=== PATIENT | female | born 1950 | race Hispanic/Latino ===

== ENCOUNTER 2016-10-11 07:21 | Day surgery (SDC) | payer MEDICARE ==
[2016-10-01 08:27] VITALS: BMI 30.8
[~2016-10-11 07:21] MED LIST: Lactated Ringer's 500 ML IV ONE; Phenylephrine 2.5% Opht Soln OD SCH; Tropicamide 1% Opht SOLUTION OD SCH
[2016-10-11] MEDS ORDERED: Lactated Ringer's 500 ML IV ONE (08:05)
[2016-10-11 08:24] VITALS: RESP 18
[2016-10-11] MEDS ORDERED: Povidone Iodine Ophthalmic 5% Soln ONE (08:49)
[2016-10-11] MEDS ORDERED: Hyaluronidase Human, Recombi 150 U/ML VIAL ONE (08:50)
[2016-10-11] MEDS ORDERED: Tobramycin/Dexamethasone OPHT OINT ONE (08:50)
[2016-10-11] MEDS ORDERED: Lidocaine 2% Inj (20ml) ONE (08:50)
[2016-10-11] MEDS ORDERED: Tetracaine 0.5% Ophth (OR ONLY) ONE (08:50)
[2016-10-11] MEDS ORDERED: Chondroitin/Hyaluronate Opth Syringe KIT (0.55 ml-0.5 ml) IO ONE (08:50)
[2016-10-11] MEDS ORDERED: Carbachol 0.01% IO ONE (08:50)
[2016-10-11] MEDS ORDERED: Propofol 10 mg/ml Inj (20 ML) ONE (09:00)
[2016-10-11 10:41] VITALS: TEMP 98
[2016-10-11 10:43] VITALS: BP 135/74; PULSE 76; O2SAT 98
--- NOTE | 2016-10-11 10:49 | OP ---
PROCEDURE DATE: 10/11/2016 PREOPERATIVE DIAGNOSIS: Nuclear cataract, right eye. POSTOPERATIVE DIAGNOSIS: Nuclear cataract, right eye. OPERATIVE PROCEDURE: Cataract extraction with lens implant, right eye. SURGEON: Maann Barry MD. ANESTHESIA: Retrobulbar block. COMPLICATIONS: None. ESTIMATED BLOOD LOSS: Zero. PROCEDURE: The patient was brought to the operating room and properly identified. Anesthesia staff a dministered intravenous sedation and retrobulbar block was given to the surgical eye. The patient wa s then prepped and draped in the usual sterile fashion. Attention was turned to the surgical eye. A lid speculum was placed into interpalpebral fissure. Si tting temporally two paracentesis incisions were made. The anterior chamber was filled with viscoela stic and a triplanar clear corneal incision was made. Using a cystitome anterior capsular leaflet wa s created. Utrata forceps were used to create a continuous curvilinear capsulorrhexis. Balanced jeanette t solution on a cannula was used to hydrodissect and hydrodelineate the lens. The lens was then phac oemulsified with no complications. Automated irrigation and aspiration was used to remove the cortex . Viscoelastic was used to deepen the anterior chamber. The lens was placed in the capsular bag. A utomated irrigation and aspiration was used to remove the viscoelastic. The anterior chamber was lucas led with Miochol. The wounds were hydrated with balanced salt solution. There was noted to be no le ak at the end of the case and the lens was well positioned. The lid speculum was removed. The eye w as given antibiotics and steroids and covered with a patch and shield. The patient was returned to [facility] recovery room in stable condition. Manan Barry MD cc: [phone] TT: 10/11/2016 10:48:42 jn
== END 2016-10-11 10:15 | disposition home or self-care (01) ==
LOC: C.SDS 07:21
PROVIDERS: ATTEND Ophthalmology
DX: H25.11 Age-related nuclear cataract, right eye (principal)
CPT/HCPCS: 66984; 82948; J2704; J3470; J7120

== ENCOUNTER 2016-12-06 12:25 | Emergency (ER) | payer MEDICARE ==
[2016-12-06 12:26] VITALS: BMI 30.8
[2016-12-06 12:48] VITALS: BP 116/76; PULSE 107; RESP 22; TEMP 98.4; O2SAT 96
--- NOTE | 2016-12-06 13:55 | C.PDOC ---
History Of Present Illness 66 yo female w/PMHx come in for evaluation of lower back pain exacerbation for past few days. Pt admits, pain is similar to previous episodes and appears chronic with acute exacerbation currently. Pt sts, pain is localized over left lower back, localized and worse with movement. Pt admits, takes Flexeril, Motrin , Tylenol #3 without improvement in pain. Pt admits, 2 weeks ago had onset of diarrhea. Pt sts, " was seen by PMD and received anti-diarrheal and antibiotic with good resolution in diarrhea". Otherwise, pt denies recent known trauma or injury, fever, chills, CP, SOB, abd. pain, N/V, UTI sx, saddle anesthesia, urinary or fecal incontinence, denies new weakness, sensory or vascular deficits to B/L LEs. Ambulate to Ed for evaluation, not in any apparent distress. Time Seen by Provider: 12/06/16 12:50 Chief Complaint (Nursing): Back Pain History Per: Patient Onset/Duration Of Symptoms: Gradual Current Symptoms Are (Timing): Worse Quality Of Discomfort: Aching Severity: Moderate Previous Symptoms: Back Pain, Chronic Pain Associated Symptoms: None Exacerbating Factor(s): Movement, Sitting Recent travel outside of the [place]: No Past Medical History Reviewed: Historical Data, Nursing Documentation, Vital Signs Vital Signs: Last Vital Signs Temp 98.4 F 12/06/16 12:45 Pulse 107 H 12/06/16 12:45 Resp 22 12/06/16 12:45 BP 116/76 12/06/16 12:45 Pulse Ox 96 12/06/16 13:55 - Medical History PMH: Arthritis, COPD, Diabetes (niddm), Emphysema, Fractures (left foot), Gall Bladder Disease (gallstones), Hypercholesterolemia, Hypothyroidism, TIA Denies: Chronic Kidney Disease Surgical History: Cholecystectomy - [facility] Procedures LAPAROSCOPIC CHOLECYSTECTOMY (01/12/13) TETANUS TOXOID ADMINIST (06/05/14) Family History: States: No Known Family Hx - Social History Hx Tobacco Use: Yes Hx Alcohol Use: No Hx Substance Use: No - Immunization History Hx Tetanus Toxoid Vaccination: No Hx Influenza Vaccination: No Hx Pneumococcal Vaccination: No Review Of Systems Except As Marked, All Systems Reviewed And Found Negative. Constitutional: Negative for: Fever, Chills ENT: Negative for: Throat Pain Cardiovascular: Negative for: Chest Pain, Palpitations Respiratory: Negative for: Cough, Shortness of Breath Gastrointestinal: Negative for: Nausea, Vomiting, Abdominal Pain, Diarrhea Genitourinary: Negative for: Dysuria, Frequency, Incontinence Musculoskeletal: Positive for: Back Pain Skin: Negative for: Rash, Bruising Neurological: Negative for: Weakness, Numbness, Headache, Dizziness Physical Exam - Physical Exam Appears: Well, Non-toxic, No Acute Distress Skin: Normal Color, Warm, Dry, No Rash Eye(s): bilateral: PERRL Oral Mucosa: Moist Throat: No Erythema, No Drooling Neck: Supple Respiratory: No Stridor, No Wheezing Gastrointestinal/Abdominal: Soft, No Tenderness, No Distention, No Guarding Back: No CVA Tenderness, Paraspinal Tenderness (diffuse L>R lumbar paraspinal tenderness with mild muscle spasm.) Extremity: No Pedal Edema, No Calf Tenderness, No Deformity Neurological/Psych: Oriented x3, Normal Speech, Normal Motor, Normal Sensation, Normal Reflexes ED Course And Treatment O2 Sat by Pulse Oximetry: 96 Progress Note: On re-evaluation, pt is afebrile, hemodynamicaly stable. non- toxic. Ambulatoyr in ED with stable gait. Abd: benign. back: (-) CVA tenderness. neurological intact. Pt has clinical finding c/w Left lower back pain. Pt advised. ref. to F/u with PMD in 2-3 days for re-eval. return to ED if any worsening or new changes. Disposition Counseled Patient/Family Regarding: Diagnosis, Need For Followup, Rx Given - Disposition Referrals: Amol Simpson MD [Staff Provider] - [facility] [Provider Group] [facility] [Provider Group] Disposition: HOME/ ROUTINE Disposition Time: 13:40 Condition: STABLE Additional Instructions: LIght duty to lower back Take pain medication as prescribed Follow up with PMD and Pain management in 2-3 days for re-evaluation. Return to ED if any worsening or new changes. Prescriptions: Methocarbamol [Robaxin] 500 mg PO TID #14 tab oxyCODONE/Acetaminophen [Percocet 5/325 mg Tab] 1 tab PO BID PRN #7 tab PRN Reason: Pain Instructions: Chronic Back Pain (ED) - Clinical Impression Clinical Impression: Back pain
== END 2016-12-06 14:27 | disposition home or self-care (01) ==
LOC: C.ER 12:25
DX: M54.5 Low back pain (principal)
CPT/HCPCS: 96372; 99283; J1885

== ENCOUNTER 2017-02-17 13:53 | Inpatient (IN) | payer MEDICARE ==
[2017-02-17 14:04] VITALS: BMI 31.1
--- NOTE | 2017-02-17 14:31 | RAD ---
HISTORY: productive cough COMPARISON: Chest x-ray performed 09/10/16 TECHNIQUE: Chest PA and lateral FINDINGS: LUNGS: Mild patchy opacity at the right lung base favored to reflect atelectasis rather than pneumonia; correlate clinically. Please note that chest x-ray has limited sensitivity for the detection of pulmonary masses. PLEURA: No significant pleural effusion identified. No definite pneumothorax . CARDIOVASCULAR: Borderline cardiomegaly. OSSEOUS STRUCTURES: Mild degenerative changes. VISUALIZED UPPER ABDOMEN: Unremarkable. OTHER FINDINGS: None. IMPRESSION: Mild patchy opacity at the right lung base favored to reflect atelectasis rather than pneumonia; correlate clinically. Mild biapical pleural thickening.
[2017-02-17] MEDS ORDERED: Sodium Chloride 0.9% 1,000 ML IV ONE ×2 (14:33→16:02)
[2017-02-17] MEDS ORDERED: Azithromycin 500 MG in Sodium Chloride 0.9% 250 ML IVPB STA (14:34)
--- NOTE | 2017-02-17 14:39 | C.PDOC ---
History Of Present Illness 66 yr old female with PMHx of COPD and diabetes, presents to ER with 1 day history of nasal congestion, productive cough with green sputum and chest pain with cough. Denies isolated chest pain. Also reports of chills. Patient denies fever, leg swelling, palpitations, SOB, nausea, vomiting or abdominal pain. Time Seen by Provider: 02/17/17 14:07 Chief Complaint (Nursing): Cough, Cold, Congestion History Per: Patient History/Exam Limitations: no limitations Onset/Duration Of Symptoms: Days (1) Current Symptoms Are (Timing): Still Present Past Medical History Reviewed: Historical Data, Nursing Documentation, Vital Signs Vital Signs: Last Vital Signs Temp 98.7 F 02/17/17 15:56 Pulse 130 H 02/17/17 15:56 Resp 20 02/17/17 15:56 BP 134/80 02/17/17 15:56 Pulse Ox 95 02/17/17 15:56 - Medical History PMH: Arthritis, COPD, Diabetes (niddm), Emphysema, Fractures (left foot), Gall Bladder Disease (gallstones), Hypercholesterolemia, Hypothyroidism, TIA Surgical History: Cholecystectomy - [facility] Procedures LAPAROSCOPIC CHOLECYSTECTOMY (01/12/13) TETANUS TOXOID ADMINIST (06/05/14) Family History: States: No Known Family Hx - Social History Hx Tobacco Use: Yes Hx Alcohol Use: No Hx Substance Use: No - Immunization History Hx Tetanus Toxoid Vaccination: No Hx Influenza Vaccination: No Hx Pneumococcal Vaccination: No Review Of Systems Except As Marked, All Systems Reviewed And Found Negative. Constitutional: Positive for: Chills. Negative for: Fever Cardiovascular: Positive for: Chest Pain (With cough ). Negative for: Palpitations, Orthopnea, Edema, Light Headedness Respiratory: Positive for: Cough (Productive ), Sputum (Green ). Negative for: Shortness of Breath, Hemoptysis, SOB with Excertion, Pleuritic Pain, Wheezing Gastrointestinal: Negative for: Nausea, Vomiting, Abdominal Pain, Constipation Genitourinary: Negative for: Dysuria Musculoskeletal: Negative for: Neck Pain Skin: Negative for: Rash Neurological: Negative for: Weakness, Numbness Psych: Negative for: Anxiety Physical Exam - Physical Exam Appears: Well, Non-toxic, No Acute Distress Skin: Warm, Dry, No Rash Head: Atraumatic, Normacephalic Eye(s): bilateral: Normal Inspection, PERRL, EOMI Oral Mucosa: Moist Throat: Normal, No Erythema, No Exudate, No Drooling Neck: Normal, Normal ROM, Supple Chest: Symmetrical, No Tenderness Cardiovascular: Rhythm Regular, Other ((+) Tachy ) Respiratory: Normal Breath Sounds, No Rales, No Rhonchi, No Wheezing Gastrointestinal/Abdominal: Normal Exam, Soft, No Tenderness, No Distention, No Guarding, No Rebound Back: Normal Inspection, No CVA Tenderness Extremity: Normal ROM, No Swelling Neurological/Psych: Oriented x3, Normal Speech, Normal Motor Gait: Steady ED Course And Treatment - Laboratory Results Result Diagrams: 02/17/17 15:05 02/17/17 15:05 ECG: Viewed By Me ECG Rhythm: Sinus Tachycardia Interpretation Of ECG: Normal intervals. Normal axis. No ST/T wave changes. Rate From EC (BPM) O2 Sat by Pulse Oximetry: 95 (RA ) Pulse Ox Interpretation: Normal - Other Rad CXR X-Ray: Viewed By Me, Read By Radiologist Interpretation: HISTORY: productive cough. COMPARISON: Chest x-ray performed 09/10/16. TECHNIQUE: Chest PA and lateral. FINDINGS: LUNGS: Mild patchy opacity at the right lung base favored to reflect atelectasis rather than pneumonia; correlate clinically. Please note that chest x-ray has limited sensitivity for the detection of pulmonary masses. PLEURA: No significant pleural effusion identified. No definite pneumothorax . CARDIOVASCULAR: Borderline cardiomegaly. OSSEOUS STRUCTURES: Mild degenerative changes. VISUALIZED UPPER ABDOMEN: Unremarkable. OTHER FINDINGS: None. IMPRESSION: Mild patchy opacity at the right lung base favored to reflect atelectasis rather than pneumonia; correlate clinically. Mild biapical pleural thickening. Progress Note: CXR presentation consistent with pneumonia, patient will be started on antibiotics and blood cultures will be obtained. Medical Decision Making Medical Decision Making: PLAN: * CXR * EKG * VBG * D-Dimer * CBC * CMP * Tessalon Perles PO * Rocephin IVPB * Zithromax IVPB * Sodium Chloride IV WBC:15. Cxray consistent with pna. Tachycardic on arrival, but with normal lactate. D-dimer cancelled as presentation consistent with pneumonia. Will transfer to med/sx observation for pna. 3:46PM PMD Aron admits to [facility] and spoke to Dr. Tasia elias for [facility] who accepted patient to his service. Disposition - Disposition Disposition: HOSPITALIZED Disposition Time: 15:47 Condition: FAIR - Clinical Impression Clinical Impression: Pneumonia - Scribe Statement The provider has reviewed the documentation as recorded by the Nicolasaibe Marisabel Marrero Provider Attestation: All medical record entries made by the Nicolasaibnichole were at my direction and personally dictated by me. I have reviewed the chart and agree that the record accurately reflects my personal performance of the history, physical exam, medical decision making, and the department course for this patient. I have also personally directed, reviewed, and agree with the discharge instructions and disposition.
[2017-02-17] MEDS ORDERED: Azithromycin 500mg/250ML NS 500 MG/250 ML BAG IVPB ONE (14:46)
[2017-02-17] MEDS ORDERED: Sodium Chloride 0.9% 250 ML IV ONE (14:46)
[2017-02-17] MEDS ORDERED: cefTRIAXone IV 1 gm in Dextros 50 ML IVPB ONE (14:46)
[2017-02-17 15:17] LABS: BASO % 0.3 % (0.0-2.0); EOS # 0.1 K/uL (0.0-0.7); LYMPH # 1.1 K/uL (1.0-4.3); LYMPH % 6.9 % (20.0-40.0); MEAN CELL VOLUME 80.1 fL (81.0-99.0); MEAN CORPUSCULAR HEMOGLOBIN 25.6 pg (27.0-31.0); MEAN PLATELET VOLUME 7.4 fL (7.2-11.7); MONO # 0.6 K/uL (0.0-0.8); MONO % 3.7 % (0.0-10.0); PLATELET COUNT 322 K/uL (130-400); RED CELL DISTRIBUTION WIDTH 15.6 % (11.5-14.5); WHITE BLOOD COUNT 15.3 K/uL (4.8-10.8)
[2017-02-17 15:18] LABS: CHLORIDE 102 mmol/L (98-107); SODIUM 144 mmol/L (132-148)
[2017-02-17 15:19] LABS: POTASSIUM 3.8 mmol/L (3.6-5.2)
[2017-02-17 15:21] LABS: VENOUS BLOOD GAS BASE EXCESS 2.3 mmol/L (0.0-2.0); VENOUS BLOOD GAS PCO2 56 mmHg (40-60); VENOUS BLOOD PH 7.33 (7.32-7.43)
[2017-02-17 15:21] LABS: ALB/GLOB RATIO 1.3 (1.0-2.1); ALKALINE PHOSPHATASE 127 U/L (38-126); ALT/SGPT 46 U/L (9-52); AST/SGOT 29 U/L (14-36); BILIRUBIN,TOTAL 0.8 mg/dL (0.2-1.3); BLOOD UREA NITROGEN 10 mg/dL (7-17); CALCIUM 9.7 mg/dl (8.6-10.4); CARBON DIOXIDE 28 mmol/L (22-30); GFR AFRICAN-AMERICAN > 60; GLUCOSE,RANDOM 104 mg/dL (65-105); TOTAL PROTEIN 7.7 g/dL (6.3-8.3)
[2017-02-17 15:47] LABS: EOSINOPHIL 4 % (0-4); NEUTROPHIL 81 % (50-75); TOTAL CELLS COUNTED 100
[2017-02-17] MEDS ORDERED: Sodium Chloride 0.9% 1,000 ML ONE (16:42)
--- NOTE | 2017-02-17 20:36 | CP.PCM.HP ---
History of Present Illness - History of Present Illness History of Present Illness: 66 yr old female with PMHx of COPD and diabetes, presents to ER with 1 day history of nasal congestion, productive cough with green sputum and chest pain with cough. Denies isolated chest pain. Also reports of chills. Patient denies fever, leg swelling, palpitations, SOB, nausea, vomiting or abdominal pain. Present on Admission - Present on Admission Any Indicators Present on Admission: No History of DVT/PE: No History of Uncontrolled Diabetes: No Urinary Catheter: No Decubitus Ulcer Present: No Review of Systems - Review of Systems All systems: reviewed and no additional remarkable complaints except (As mentioned in HPI) Past Patient History - Infectious Disease Hx of Infectious Diseases: None - Past Medical History & Family History Past Medical History?: No - Past Social History Smoking Status: Former Smoker - CARDIAC Hx Hypercholesterolemia: Yes - PULMONARY Hx Chronic Obstructive Pulmonary Disease (COPD): Yes Hx Emphysema: Yes - NEUROLOGICAL Hx Transient Ischemic Attacks (TIA): Yes - HEENT Hx HEENT Problems: Yes Hx Cataracts: Yes - RENAL Hx Chronic Kidney Disease: No - ENDOCRINE/METABOLIC Hx Hypothyroidism: Yes - HEMATOLOGICAL/ONCOLOGICAL Hx Blood Transfusions: Yes - INTEGUMENTARY Hx Dermatological Problems: No - MUSCULOSKELETAL/RHEUMATOLOGICAL Hx Arthritis: Yes Hx Fractures: Yes (left foot) - GASTROINTESTINAL Hx Gall Bladder Disease: Yes (gallstones) - GENITOURINARY/GYNECOLOGICAL Hx Genitourinary Disorders: No - PSYCHIATRIC Hx Substance Use: No - SURGICAL HISTORY Hx Cholecystectomy: Yes - ANESTHESIA Hx Anesthesia: Yes Hx Anesthesia Reactions: No Hx Malignant Hyperthermia: No Meds Allergies/Adverse Reactions: Allergies Allergy/AdvReac Type Severity Reaction Status Date / Time No Known Allergies Allergy Verified 02/17/17 19:43 Physical Exam - Constitutional Additional comments: Dyspneic - Eye Exam Eye Exam: Normal appearance - ENT Exam ENT Exam: Mucous Membranes Moist - Respiratory Exam Respiratory Exam: Decreased Breath Sounds, Rhonchi - Cardiovascular Exam Cardiovascular Exam: REGULAR RHYTHM, +S1, +S2 - GI/Abdominal Exam GI & Abdominal Exam: Normal Bowel Sounds, Soft - Extremities Exam Extremities exam: Positive for: normal inspection - Neurological Exam Neurological exam: Alert, Oriented x3 Results - Vital Signs Recent Vital Signs: Last Vital Signs Temp 98.6 F 02/17/17 19:37 Pulse 84 02/17/17 19:37 Resp 18 02/17/17 19:37 BP 117/75 08/20/17 19:37 Pulse Ox 98 02/17/17 19:37 - Labs Result Diagrams: 02/17/17 15:05 02/17/17 15:05 Assessment & Plan (1) COPD (chronic obstructive pulmonary disease) Status: Acute (2) Diabetes Status: Acute (3) Pneumonia Status: Acute - Assessment and Plan (Free Text) Plan: Zithromax and ceftriaxone Sputum cultures Bronchodilators Oxygen supplementation Advair 250/50 micrograms 1 puff twice a day Accu-Chek Insulin sliding scale DVT GI prophylaxis
[2017-02-17] MEDS: (Novolog) Insulin Aspart, Recombinant 100 u/ml 10 ml vial SC SCH (22:01)
[2017-02-18] MEDS ORDERED: cefTRIAXone IV 1 gm in Dextros 50 ML IVPB SCH ×3 (00:15→22:00)
[2017-02-18] MEDS: Levothyroxine 150 MCG TAB PO SCH (05:56)
[2017-02-18] MEDS: Albuterol-Ipratrop 3 mg / 0.5 (3 ml) UD INH PRN ×3 (06:14→20:34)
[2017-02-18] MEDS: (Novolog) Insulin Aspart, Recombinant 100 u/ml 10 ml vial SC SCH ×5 (08:31→22:01)
[2017-02-18] MEDS: cefTRIAXone IV 1 gm in Dextros 50 ML IVPB SCH ×2 (10:09→22:01)
[2017-02-18] MEDS: Enoxaparin 40 mg Syringe SC SCH (10:11)
[2017-02-18] MEDS: Azithromycin 500 MG in Sodium Chloride 0.9% 250 ML IVPB SCH (12:42)
--- NOTE | 2017-02-18 13:41 | CP.PCM.PN ---
Subjective - Date & Time of Evaluation Date of Evaluation: 02/18/17 Time of Evaluation: 13:40 - Subjective Subjective: Patient seen and examined Still dyspneic Reports cough Objective - Vital Signs/Intake and Output Vital Signs (last 24 hours): Temp Pulse Resp BP Pulse Ox 99 F 122 H 20 124/74 93 L 02/18/17 09:33 02/18/17 09:33 02/18/17 09:33 02/18/17 09:33 02/18/17 09:33 Intake and Output: 02/18/17 02/18/17 06:59 18:59 Intake Total 250 240 Balance 250 240 - Medications Medications: Current Medications Albuterol/Ipratropium (Duoneb 3 Mg/0.5 Mg (3 Ml) Ud) 3 ml INH RQ6 PRN PRN Reason: Shortness of Breath Last Admin: 02/18/17 13:37 Dose: 3 ml Clopidogrel Bisulfate (Plavix) 75 mg PO DAILY [facility] Last Admin: 02/18/17 10:09 Dose: 75 mg Enoxaparin Sodium (Lovenox) 40 mg SC DAILY [facility] Last Admin: 02/18/17 10:11 Dose: Not Given Azithromycin 500 mg/ Sodium (Chloride) 250 mls @ 167 mls/hr IVPB Q24H [facility] Last Admin: 02/18/17 12:42 Dose: 167 mls/hr Ceftriaxone Sodium (Rocephin Iv 1 Gm Duplex) 50 mls @ 100 mls/hr IVPB Q12H [facility] Last Admin: 02/18/17 10:09 Dose: 100 mls/hr Insulin Aspart (Novolog) 0 unit SC ACHS ARMANI PRN Reason: Protocol Last Admin: 02/18/17 11:25 Dose: Not Given Levothyroxine Sodium (Synthroid) 150 mcg PO DAILY@0630 [facility] Last Admin: 02/18/17 05:56 Dose: 150 mcg Metformin HCl (Glucophage) 500 mg PO BIDCC [facility] Last Admin: 02/18/17 08:31 Dose: 500 mg Promethazine HCl (Phenergan Syrup) 12.5 mg PO Q6 PRN PRN Reason: Cough Rosuvastatin Calcium (Crestor) 5 mg PO HS [facility] Last Admin: 02/17/17 22:01 Dose: 5 mg Zolpidem Tartrate (Ambien) 5 mg PO HS PRN PRN Reason: Insomnia - Head Exam Head Exam: NORMAL INSPECTION - Eye Exam Eye Exam: Normal appearance - ENT Exam ENT Exam: Mucous Membranes Moist - Respiratory Exam Respiratory Exam: Rales, Rhonchi - Cardiovascular Exam Cardiovascular Exam: REGULAR RHYTHM, +S1, +S2 - GI/Abdominal Exam GI & Abdominal Exam: Soft, Normal Bowel Sounds - Extremities Exam Extremities Exam: Normal Inspection Assessment and Plan (1) Pneumonia Status: Acute (2) Diabetes Status: Acute (3) COPD (chronic obstructive pulmonary disease) Status: Acute - Assessment and Plan (Free Text) Plan: Zithromax and ceftriaxone Bronchodilators Oxygen supplementation Advair 250/50 micrograms 1 puff twice a day Accu-Chek Insulin sliding scale DVT GI prophylaxis
[2017-02-18] MEDS: Promethazine 12.5 mg/10 ml Syrup PO PRN ×2 (14:57→21:51)
[2017-02-19] MEDS: Levothyroxine 150 MCG TAB PO SCH (06:33)
[2017-02-19 07:48] VITALS: RESP 20
[2017-02-19] MEDS: (Novolog) Insulin Aspart, Recombinant 100 u/ml 10 ml vial SC SCH ×4 (08:16→22:35)
[2017-02-19] MEDS: Promethazine 12.5 mg/10 ml Syrup PO PRN ×2 (08:16→23:58)
[2017-02-19] MEDS: Albuterol-Ipratrop 3 mg / 0.5 (3 ml) UD INH PRN ×3 (08:18→20:59)
[2017-02-19] MEDS: cefTRIAXone IV 1 gm in Dextros 50 ML IVPB SCH ×2 (09:57→22:12)
[2017-02-19] MEDS: Enoxaparin 40 mg Syringe SC SCH (09:58)
[2017-02-19] MEDS: Azithromycin 500 MG in Sodium Chloride 0.9% 250 ML IVPB SCH (12:14)
[2017-02-19] MEDS ORDERED: guaiFENesin 200 mg/10 ml Syrup UD PO PRN (15:31)
--- NOTE | 2017-02-19 16:20 | CP.PCM.PN ---
Subjective - Date & Time of Evaluation Date of Evaluation: 02/19/17 Time of Evaluation: 16:20 - Subjective Subjective: Patient seen and examined Feels much better today Objective - Vital Signs/Intake and Output Vital Signs (last 24 hours): Temp Pulse Resp BP Pulse Ox 98.8 F 102 H 20 128/77 93 L 02/19/17 15:58 02/19/17 15:58 02/19/17 15:58 02/19/17 15:58 02/19/17 15:58 Intake and Output: 02/19/17 02/19/17 06:59 18:59 Intake Total 950 Balance 950 - Medications Medications: Current Medications Acetaminophen (Tylenol 325mg Tab) 650 mg PO Q6 PRN PRN Reason: Pain, severe (8-10) Last Admin: 02/19/17 12:48 Dose: 650 mg Albuterol/Ipratropium (Duoneb 3 Mg/0.5 Mg (3 Ml) Ud) 3 ml INH RQ6 PRN PRN Reason: Shortness of Breath Last Admin: 02/19/17 14:11 Dose: 3 ml Clopidogrel Bisulfate (Plavix) 75 mg PO DAILY [facility] Last Admin: 02/19/17 09:56 Dose: 75 mg Enoxaparin Sodium (Lovenox) 40 mg SC DAILY [facility] Last Admin: 02/19/17 09:58 Dose: Not Given Guaifenesin (Robitussin) 200 mg PO Q6H PRN PRN Reason: Cough and congestion Azithromycin 500 mg/ Sodium (Chloride) 250 mls @ 167 mls/hr IVPB Q24H [facility] Last Admin: 02/19/17 12:14 Dose: 167 mls/hr Ceftriaxone Sodium (Rocephin Iv 1 Gm Duplex) 50 mls @ 100 mls/hr IVPB Q12H [facility] Last Admin: 02/19/17 09:57 Dose: 100 mls/hr Insulin Aspart (Novolog) 0 unit SC ACHS ARMANI PRN Reason: Protocol Last Admin: 02/19/17 11:54 Dose: Not Given Levothyroxine Sodium (Synthroid) 150 mcg PO DAILY@0630 [facility] Last Admin: 02/19/17 06:33 Dose: 150 mcg Metformin HCl (Glucophage) 500 mg PO BIDCC [facility] Last Admin: 02/19/17 08:15 Dose: 500 mg Metoprolol Tartrate (Lopressor) 25 mg PO BID [facility] Promethazine HCl (Phenergan Syrup) 12.5 mg PO Q6 PRN PRN Reason: Cough Last Admin: 02/19/17 08:16 Dose: 12.5 mg Rosuvastatin Calcium (Crestor) 5 mg PO HS [facility] Last Admin: 02/18/17 21:50 Dose: 5 mg Zolpidem Tartrate (Ambien) 5 mg PO HS PRN PRN Reason: Insomnia - Head Exam Head Exam: NORMAL INSPECTION - Eye Exam Eye Exam: Normal appearance - ENT Exam ENT Exam: Mucous Membranes Moist - Cardiovascular Exam Cardiovascular Exam: REGULAR RHYTHM, +S1, +S2 - GI/Abdominal Exam GI & Abdominal Exam: Soft, Normal Bowel Sounds - Extremities Exam Extremities Exam: Normal Inspection - Neurological Exam Neurological Exam: Alert, Oriented x3 Assessment and Plan (1) COPD (chronic obstructive pulmonary disease) Status: Acute (2) Diabetes Status: Acute (3) Pneumonia Status: Acute - Assessment and Plan (Free Text) Plan: Zithromax and ceftriaxone Sputum cultures Bronchodilators Oxygen supplementation Advair 250/50 micrograms 1 puff twice a day Accu-Chek Insulin sliding scale If continues to improve clinically will discharge patient home tomorrow on oral antibiotics. DVT GI prophylaxis
--- NOTE | 2017-02-19 19:04 | CARD ---
APPROVED REPORT EKG Measurement Heart [id number] <Conclusion> Sinus tachycardia Otherwise normal ECG
[2017-02-20] MEDS: Levothyroxine 150 MCG TAB PO SCH (06:40)
[2017-02-20 08:02] VITALS: BP 144/93; PULSE 102; TEMP 97.2; O2SAT 95
[2017-02-20] MEDS: Albuterol-Ipratrop 3 mg / 0.5 (3 ml) UD INH PRN ×2 (08:09→13:20)
[2017-02-20] MEDS: (Novolog) Insulin Aspart, Recombinant 100 u/ml 10 ml vial SC SCH ×2 (08:28→11:55)
[2017-02-20] MEDS: cefTRIAXone IV 1 gm in Dextros 50 ML IVPB SCH ×2 (09:49→10:07)
[2017-02-20] MEDS: Enoxaparin 40 mg Syringe SC SCH (10:05)
[2017-02-20] MEDS: Azithromycin 500 MG in Sodium Chloride 0.9% 250 ML IVPB SCH (12:56)
--- NOTE | 2017-02-21 00:43 | CP.PCM.DIS ---
Provider - Provider Date of Admission: 02/18/17 15:17 Attending physician: Emeterio Dozier MD Time Spent in preparation of Discharge (in minutes): 25 Diagnosis - Discharge Diagnosis (1) COPD (chronic obstructive pulmonary disease) Status: Acute (2) Diabetes Status: Acute (3) Pneumonia Status: Acute Hospital Course - Lab Results Lab Results: Most Recent Lab Values WBC 15.3 K/uL (4.8-10.8) H D 02/17/17 15:05 RBC 5.37 Mil/uL (3.80-5.20) H 02/17/17 15:05 Hgb 13.8 g/dL (11.0-16.0) 02/17/17 15:05 Hct 43.0 % (34.0-47.0) 02/17/17 15:05 MCV 80.1 fL (81.0-99.0) L 02/17/17 15:05 MCH 25.6 pg (27.0-31.0) L 02/17/17 15:05 MCHC 32.0 g/dL (33.0-37.0) L 02/17/17 15:05 RDW 15.6 % (11.5-14.5) H 02/17/17 15:05 Plt Count 322 K/uL (130-400) 02/17/17 15:05 MPV 7.4 fL (7.2-11.7) 02/17/17 15:05 Neut % (Auto) 88.1 % (50.0-75.0) H 02/17/17 15:05 Lymph % (Auto) 6.9 % (20.0-40.0) L 02/17/17 15:05 [place] % (Auto) 3.7 % (0.0-10.0) 02/17/17 15:05 Eos % (Auto) 1.0 % (0.0-4.0) 02/17/17 15:05 Baso % (Auto) 0.3 % (0.0-2.0) 02/17/17 15:05 Neut # 13.5 K/uL (1.8-7.0) H 02/17/17 15:05 Lymph # 1.1 K/uL (1.0-4.3) 02/17/17 15:05 [place] # 0.6 K/uL (0.0-0.8) 02/17/17 15:05 Eos # 0.1 K/uL (0.0-0.7) 02/17/17 15:05 Baso # 0.0 K/uL (0.0-0.2) 02/17/17 15:05 Neutrophils % (Manual) 81 % (50-75) H 02/17/17 15:05 Lymphocytes % (Manual) 9 % (20-40) L 02/17/17 15:05 Monocytes % (Manual) 6 % (0-10) 02/17/17 15:05 Eosinophils % (Manual) 4 % (0-4) 02/17/17 15:05 Platelet Estimate Normal (NORMAL) 02/17/17 15:05 Anisocytosis (manual) Slight 02/17/17 15:05 D-Dimer, Quantitative 301 ng/mlDDU (0-243) H 02/17/17 15:05 pO2 18 mm/Hg (30-55) L 02/17/17 15:15 VBG pH 7.33 (7.32-7.43) 02/17/17 15:15 VBG pCO2 56 mmHg (40-60) 02/17/17 15:15 VBG HCO3 24.7 mmol/L 02/17/17 15:15 VBG Total CO2 31.2 mmol/L (22-28) H 02/17/17 15:15 VBG O2 Sat (Calc) 24.0 % (40-65) L 02/17/17 15:15 VBG Base Excess 2.3 mmol/L (0.0-2.0) H 02/17/17 15:15 VBG Potassium 3.7 mmol/L (3.6-5.2) 02/17/17 15:15 Sodium 144.0 mmol/l (132-148) 02/17/17 15:15 Chloride 105.0 mmol/L (98-107) 02/17/17 15:15 Glucose 108 mg/dl (65-105) H 02/17/17 15:15 Lactate 1.2 mmol/L (0.7-2.1) 02/17/17 15:15 FiO2 21.0 % 02/17/17 15:15 Sodium 144 mmol/L (132-148) 02/17/17 15:05 Potassium 3.8 mmol/L (3.6-5.2) 02/17/17 15:05 Chloride 102 mmol/L (98-107) 02/17/17 15:05 Carbon Dioxide 28 mmol/L (22-30) 02/17/17 15:05 Anion Gap 17 (10-20) 02/17/17 15:05 BUN 10 mg/dL (7-17) 02/17/17 15:05 Creatinine 0.7 MG/DL (0.7-1.2) 02/17/17 15:05 Est GFR ( Amer) > 60 02/17/17 15:05 Est GFR (Non-Af Amer) > 60 02/17/17 15:05 POC Glucose (mg/dL) 92 mg/dL (65-110) 02/20/17 11:03 Random Glucose 104 mg/dL (65-105) 02/17/17 15:05 Calcium 9.7 mg/dl (8.6-10.4) 02/17/17 15:05 Total Bilirubin 0.8 mg/dL (0.2-1.3) 02/17/17 15:05 AST 29 U/L (14-36) 02/17/17 15:05 ALT 46 U/L (9-52) 02/17/17 15:05 Alkaline Phosphatase 127 U/L (38-126) H D 02/17/17 15:05 Total Protein 7.7 g/dL (6.3-8.3) 02/17/17 15:05 Albumin 4.4 g/dL (3.5-5.0) 02/17/17 15:05 Globulin 3.3 gm/dL (2.2-3.9) 02/17/17 15:05 Albumin/Globulin Ratio 1.3 (1.0-2.1) 02/17/17 15:05 Venous Blood Potassium 3.7 mmol/L (3.6-5.2) 02/17/17 15:15 - Hospital Course Hospital Course: Patient was treated with IV and biotics, bronchodilators, oxygen Advair and her condition improved. Patient is being discharged home by me for pulmonary and by her PMD. Discharge Exam - Head Exam Head Exam: NORMAL INSPECTION Discharge Plan - Discharge Medications Prescriptions: Cephalexin [cephalexin] 500 mg PO BID #10 cap - Follow Up Plan Condition: FAIR Disposition: HOME/ ROUTINE Instructions: Heart Healthy Diet (DC), Diabetes Mellitus Type 2 in Adults (DC) , Rheumatoid Arthritis (DC), COPD (Chronic Obstructive Pulmonary Disease) (DC), Low Sodium Diet (DC), Atelectasis (DC) Additional Instructions: Please f/u with Dr. Simpson office in 1 week Continue medication as per Med. Rec Referrals: Amol Simpson MD [Staff Provider] -
== END 2017-02-20 14:19 | disposition home or self-care (01) | DRG 190 ==
LOC: C.ER 13:53 → C.9E 15:44 → C.3T 19:25 → OBSVTOIN 02-18 15:17
PROVIDERS: ADMIT Internal Medicine Critical Care Medicine; ATTEND Internal Medicine Critical Care Medicine
DX: J44.0 Chronic obstructive pulmonary disease with (acute) lower respiratory infection (principal); J18.9 Pneumonia, unspecified organism; E11.9 Type 2 diabetes mellitus without complications; Z79.4 Long term (current) use of insulin

== ENCOUNTER 2018-03-14 07:39 | Day surgery (SDC) | payer MEDICARE ==
[2017-02-17 15:51] VITALS: BMI 31.1
[~2018-03-14 07:39] MED LIST changes: +EPINEPHrine 1:1000 Nasal Sol(30mL) ONE; -Lactated Ringer's 500 ML IV ONE; -Phenylephrine 2.5% Opht Soln OD SCH; -Tropicamide 1% Opht SOLUTION OD SCH
[2018-03-14] MEDS ORDERED: ceFAZolin 1 gm FROZEN Premix 2 GM/100 ML ML IVPB ONE (07:40)
[2018-03-14] MEDS ORDERED: Rocuronium 10 mg/ml (10 ml) ONE (09:12)
[2018-03-14] MEDS ORDERED: Propofol 10 mg/ml Inj (20 ML) ONE (09:12)
[2018-03-14] MEDS ORDERED: Midazolam 2 MG/2 ML VIAL ONE (09:12)
[2018-03-14] MEDS ORDERED: Phenylephrine 10 mg/ml Inj ONE (09:25)
[2018-03-14] MEDS ORDERED: Neostigmine Methylsulfate 3mg/3ml Syringe IV ONE (10:55)
[2018-03-14] MEDS ORDERED: Oxycodone/Acetaminophen 5/325 mg Tab PO PRN (11:17)
[2018-03-14] MEDS ORDERED: HYDROmorphone 0.5 mg/0.5 ml ISec IVP PRN ×2 (11:20→13:09)
[2018-03-14] MEDS ORDERED: Lactated Ringer's 1,000 ML IV SCH (11:30)
[2018-03-14] MEDS ORDERED: Bupivacaine 0.25% 20 ML INJ IJ ONE (11:36)
[2018-03-14 12:59] VITALS: O2SAT 100
[2018-03-14 13:43] VITALS: BP 130/76; PULSE 77; RESP 18; TEMP 97
--- NOTE | 2018-03-14 20:50 | PCM.ANESB3 ---
Femoral Nerve Block - Femoral Nerve Block Date of Procedure: 03/14/18 Anesthesiologist: Wade Pre-Procedure Diagnosis: s/p left knee arthroscopy Procedure Performed: Femoral Nerve Block Left - Procedure Femoral Nerve Block: [id number] - Left femoral nerve block, adductor canal approach, requested by Dr. Partida. In PACU, under ultrasound guidance, 30 cc 0.25% bupivacaine injected under sterile conditions, 5 cc increments, negative aspiration throughout. Patient tolerated procedure well.
--- NOTE | 2018-03-16 23:55 | PCM.SURG1 ---
Surgeon's Initial Post Op Note - Surgeon's Notes Surgeon: Laureano Partida MD Workers Compensation Attorney: Jose E Goncalves MD Type of Anesthesia: General Endo, [facility] Pre-Operative Diagnosis: Right knee: #1 Medial meniscal tear. #2 chondromalacia. #3 synovitis. #4 [place] Operative Findings: Right knee: #1 Medial meniscal tear (posterior horn free- edge white-white zone tear extending to the anterior horn/ posterior horn peripheral tear at red-red zone, repairable). #2 lateral meniscal tear (white- white zone irrepairable free edge tear). #3 chondromalacia medial femoral condyle with zone of full thickness grade 4 injury at posterior aspect of WB MFC measuring [id number]). #4 synovitis all 3 compartments. #5 symptomatic medial plica band. #6 hypertrophic inflammed anterior fat pad causing anterior impingement Post-Operative Diagnosis: Right knee: #1 Medial meniscal tear (posterior horn free-edge white-white zone tear extending to the anterior horn/ posterior horn peripheral tear at red-red zone, repairable). #2 lateral meniscal tear (white- white zone irrepairable free edge tear). #3 chondromalacia medial femoral condyle with zone of full thickness grade 4 injury at posterior aspect of WB MFC measuring [id number]). #4 synovitis all 3 compartments. #5 symptomatic medial plica band. #6 hypertrophic inflammed anterior fat pad causing anterior impingement Operation Performed: Right knee arthroscopic. #1 medial meniscal repair. #2 partial lateral menisectomy. #3 microfracture and chondroplasty medial femoral condyle. #4 extensive synovectomy all 3 copartments. #5 resection symptomatic medial plica band. #6 debridement and resection hypertrophic fat pad. #7 intra -articular PRP injection Specimen/Specimens Removed: specimen= none. complications= none. tourniquet time= 0min. implants= Linvate[employer] all inside meniscal repair system, 8 implants in total for medial meniscal repair, 2 kits opened Estimated Blood Loss: EBL {In ML}: 3 Blood Products Given: N/A Drains Used: No Drains Post-Op Condition: Good Date of Surgery/Procedure: 03/14/18 Time of Surgery/Procedure: 10:00
--- NOTE | 2018-04-24 18:08 | OP ---
PROCEDURE DATE: 03/14/2018 PREOPERATIVE DIAGNOSES: Right knee: 1. Medial meniscal tear. 2. Chondromalacia. 3. Synovitis. 4. Plica. POSTOPERATIVE DIAGNOSES: Right knee: 1. Medical meniscal tear (posterior horn free edge white-white zone tear extending to the anterior horn, irreparable/posterior horn peripheral tear at red-red zone/meniscal capsular separation, that was repairable). 2. Lateral meniscal tear (white-white zone irreparable free edge tear). 3. Chondromalacia of medial femoral condyle with a zone of full thickness grade 4 injury at posterior aspect of weightbearing portion of medial femoral condyle measuring 3 mm x 4 mm). 4. Synovitis in all three compartments. 5. Symptomatic medical plica band. 6. Hypertrophic/inflamed anterior fat pad causing anterior impingement. PROCEDURES: Right knee arthroscopic: 1. All inside medial meniscal repair. 2. Partial lateral meniscectomy. 3. Chondroplasty and microfracture of medial femoral condyle full thickness cartilage defect. 4. Extensive synovectomy of three compartments. 5. Resection of symptomatic medial plica band. 6. Debridement and resection of hypertrophic fat pad. 7. Intraarticular platelet-rich plasma injection. SURGEON: Laureano Partida MD [employer] REPRESENTATIVE: Jose E Goncalves PA-C JUSTIFICATION FOR ASSISTANCE: Jose E Goncalves is a certified physician assistant district attorney, who is a skilled quality control assistant, whose presence was an absolute necessity for successful completion of the procedure as he provided skilled surgical assistance with positioning of the patient, positioning of the extremity, management of surgical bowman, retraction of neurovascular structures, facilitating all inside medial meniscal repair, facilitating partial lateral meniscectomy and handling of arthroscopic equipment including extensive synovectomy, facilitating placement of microfracture holes and successful microfracture procedure to medial femoral condyle, PRP injection, wound closure, fitting and placement of postop hinged knee brace. Jose E Goncalves was essential to the procedure, was an absolute necessity for the surgery to be done successfully and was present for the entire case. TYPE OF ANESTHESIA: General endotracheal anesthesia with a postop regional nerve block placed by anesthesia staff in PACU. SPECIMEN: None. COMPLICATIONS: None. TOURNIQUET TIME: Zero minutes. ESTIMATED BLOOD LOSS: 3 mL. DRAINS: None. DISPOSITION: The patient was extubated and transferred to the PACU in stable condition and tolerated the procedure well. IMPLANTS: Linvatec all inside Sequent meniscal repair system with placement of eight implants in total for all inside medial meniscal repair. INDICATIONS FOR SURGERY: The patient is a 67-year-old female with a past medical history significant for diabetes, hypothyroidism, who presented to my office for the first time on 09/09/2017 with the right knee pain for the better part of six years. She said that the pain was progressively worsening and she was delaying trying to obtain any orthopedic or medical intervention. She has had difficulty with going up and downstairs and significant medial joint line pain. X-rays taken in the office surprisingly showed that there was no evidence of DJD with the joint space is well maintained. We started the conservative treatment in the form of bracing, physical therapy, cortisone mixture injections, antiinflammatory medication in the form of Mobic and antiinflammatory cream. She was referred for an MRI of the right knee, which was done at [facility] [place] on 09/26/2017 and read as: 1. Linear increased signal within the posterior horn and posterior root of the medial meniscus with apparent extension to the articular surface of the level of the posterior edge suggestive for possible small tear. Additional intrasubstance degeneration and/or intrasubstance partial tearing throughout the remainder of the posterior horn. 2. Moderate suprapatellar joint effusion. 3. Linear grade 1 intrasubstance degeneration on the posterior horn of lateral meniscus. 4. Focal cartilage fibrillation overlying medial aspect of the lateral patellar facet. Mild cartilage thinning and loss involving the anterior to mid portion of the medial compartment of the femoral tibial joint space. 5. Mild thinning and attenuation with increased signal seen within the visualized anterior cruciate ligament suggestive for low grade sprain with some interstitial delamination. No gross tear. Under my care, she underwent conservative treatment for six months as she was compliant with physical therapy recommendations, home exercise program, Neoprene hinged knee brace, antiinflammatory medication and cream with no overall significant improvement. Each one of the cortisone mixture injections done in the office totalling four in total we provided with near-complete resolution of pain that was only last two weeks and returned to baseline level of pain within four weeks. After reviewing her MRI with her and determining her level of disability and dysfunction due to this pain and to improve her quality of life, the patient was indicated for arthroscopic surgery of the right knee. She was indicated for right knee arthroscopic meniscus repair versus partial meniscectomy, synovectomy, chondroplasty versus microfracture and all related indicated arthroscopic procedures. The risks, benefits and alternative of the procedure was discussed at length with the patient with the risks including, but not limited to infection, neurovascular damage, need for further surgery, development of chronic pain and disability, development of blood clots including DVT and PE, progression to significant degenerative joint disease requiring supplemental total knee arthroplasty surgery in the future, inability to return to preinjury level of activity and function, stiffness, unsatisfactory outcome, anesthesia reactions including . After answering all of the questions, stated that she understood the risks and wished to proceed with surgery. She was referred to the primary care physician for preoperative medical evaluation and PATs. Surgery was scheduled at [facility] on 03/14/2018. PROCEDURE IN DETAIL: The patient was identified in the preoperative holding area and the right knee was marked for surgery. Once again as described above, the risks, benefits, and alternatives to the procedure were discussed in length with the patient and informed consent was obtained. After brief discussion with anesthesia staff, the patient was taken to the operating room and placed on a well-padded operating room table with all bony prominences and superficial neurovascular structures well-padded. An initial time-out was done. Perioperative IV antibiotics were administered. General anesthesia was administered without difficulty or complication. Examination under anesthesia was done. EXAMINATION UNDER ANESTHESIA: Right knee with full range of motion compared to the contralateral knee, no evidence of instability with negative anterior drawer, negative posterior drawer, negative Pranay, negative reverse Pranay, negative pivot shift, negative reverse pivot shift, negative posterior lateral corner drawer, negative dial test, negative opening to medial or lateral joint line in 0 or 30 degrees varus or valgus stress, patella with normal tracking, no swelling, no warmth, no erythema and skin intact, significant reproducible plica band palpated throughout arc of range of motion at the inferior medial aspect of the patella symptomatic. CONTINUATION OF PROCEDURE: The right lower extremity was prepped and draped in standard sterile fashion after a tourniquet was placed high on the right thigh, but never inflated. A final time-out was done with the surgeon, anesthesia staff, OR staff, all in agreement with the patient, procedure being done, and extremity being operated on. A 50 mL of normal saline was used to insufflate the knee joint. Anterolateral portal created with stab incision to the skin, down the subcutaneous tissue, down to the level of capsule. Blunt arthroscopic trocar and cannula were inserted into the suprapatellar pouch and insufflation with arthroscopic fluid was begun. Arthroscopic camera was inserted and spinal needle localization was used to determine optimum entry point for anteromedial portal. Anteromedial portal was created with stab incision through skin, down the subcutaneous tissue, down to the level of capsule. Accessory cannula was used to copiously irrigate the knee joint to remove synovial debris for better visualization. With the use of an arthroscopic probe, a diagnostic arthroscopy was then carried out. DIAGNOSTIC ARTHROSCOPY: Attention was first turned towards the suprapatellar pouch where no evidence of adhesions or loose bodies were seen. Attention was then turned towards the patellofemoral joint where there was grade 2 chondromalacia of the patella with intact trochlea. Attention was then turned towards the medial gutter where immediately seen was a thickened symptomatic hypertrophic band of plica that was extending from the inferomedial aspect of the patella to the medial retinaculum abutting the medial femoral condyle and significantly symptomatic. Attention then turned towards the medial compartment where immediately seen was grade 3 chondromalacia of the medial femoral condyle with some unstable fragments with a small focal area of full thickness cartilage loss at the posterior aspect of the weightbearing zone of the medial femoral condyle measuring 3 mm x 6 mm. The medial meniscus was carefully evaluated and had two main zones of injury. At the posterior horn meniscal capsular junction with the posterior medial capsule, there was a red-red zone peripheral tear of the posterior horn of the medial meniscus measuring approximately 2 cm in width at the red-red zone/meniscal capsular separation. There was also a secondary tear of the anterior horn of the medial meniscus, superior surface has a complex tearing that appear to cause symptomatology in extension with a third free edge complex tear starting at the anterior horn extending through the mid body to the posterior horn as a free edge complex tear that was not repairable as well. The medial tibial plateau had cartilage that was intact with no evidence of injury. We then turned our attention to the intercondylar nodule where intact PCL and ACL were seen. We then turned our attention to the lateral compartment where lateral femoral condyle, lateral tibial plateau exhibited normal cartilage surface. The lateral meniscus exhibited two zones of injury as well. There was a free edge complex tear of the white-white zone that was not repairable as well as a small complex tear at the junction of the posterior root and horn. CONTINUATION OF PROCEDURE: Arthroscopic all inside medial meniscal repair: With the use of the arthroscopic shaver, radiofrequency ablation and meniscal biters, a partial medial meniscectomy was carried out debriding and resecting the complex tear of the superior aspect of the anterior horn as well as the complex tearing of the free edge of the medial meniscus. Once a smooth contour was established at the anterior horn at the free edge/white-white zone of the medial meniscus, attention was then turned towards the peripheral meniscal capsular separation/red-red zone tear. With the use of the REachc all inside meniscal repair system, eight implants in total were placed, four on the superior aspect and four on the inferior aspect of the posterior medial aspect of the posterior horn repairing it to the posterior medial capsule with good stability achieved. Four implants were placed at the superior aspect of the peripheral tear with good capsular-sided fixation to the posterior medial capsule and stability achieved resulting in alternating horizontal and vertical mattress sutures three in total. Same steps were repeated at the inferior aspect of the tear restoring hoop stress and reinforcing stability to the medial meniscus. Attention was then turned towards the lateral meniscus treatment. ARTHROSCOPIC PARTIAL LATERAL MENISCECTOMY: With the use of the arthroscopic shaver, radiofrequency ablation and meniscal biters, a partial lateral meniscectomy was carried out resecting the complex free edge tear of the lateral meniscus extending from the anterior horn to the posterior horn through the mid body. Once a smooth contour was established all in all, the pressure lateral meniscectomy resulted in resection of approximately 10% of bladder meniscus overall. There was also a debridement and resection of the posterior horn and root junction where a small tear had developed that was not complete. ARTHROSCOPIC EXTENSIVE SYNOVECTOMY: With the use of arthroscopic shaver and radiofrequency ablation, an extensive synovectomy was carried out in all three compartments of the knee joint, that was beyond what was considered usual and customary for better visualization of the knee joint during arthroscopic procedures. This also included three-compartment synovectomy. There was also a resection and debridement of the hypertrophic fat pad causing anterior impingement while maintaining good hemostatics, resection and debridement of the symptomatic medial plica band while maintaining good hemostasis, as well as the three-compartment synovectomy. Once the extensive synovectomy was carried out to satisfaction, we then turned our attention to chondroplasty and microfracture of the medial femoral condyle. With the use of arthroscopic shaver and radiofrequency ablation, chondroplasty of the medial femoral condyle was carried out removing the unstable cartilage fragments and flaps of the zone of grade 3 chondromalacia injury. At the central aspect of this lesion at its posterior weightbearing zone, there was a full thickness cartilage defect measuring approximately 3 mm x 6 mm. With the use of the microfracture technique was carried out with good bloody return. First an arthroscopic curette was used to establish a stable rim of cartilage for the lesion. Then microfracture holes were placed with good bloody return, three in total for this lesion providing a good microfracture technique. Chondroplasty was also carried out at the medial aspect of the medial femoral condyle at the zone of injury from the medial plica friction. Once the cartilage of this area was smoothed out and now antireticular treatment was completed, final pictures were taken of the synovectomy, resection of plica bands, resection and debridement of the hypertrophic fat pad, all inside medial meniscal repair, partial lateral meniscectomy, microfracture and chondroplasty of medial femoral condyle. All arthroscopic debris and fluid were removed from the knee joint. INTRAARTICULAR PLATELET-RICH PLASMA INJECTION: With the help of anesthesia staff, 10 mL of PRP were obtained and injected under direct visualization intraarticularly into the knee joints. The blood was obtained through a peripheral stick by anesthesia staff and spun in the Arthrex centrifuged yielding 10 mL of PRP, which were injected in this entirety intraarticular under direct visualization. The arthroscopic portals were then reapproximated with 2-0 Vicryl suture followed by 3-0 Vicryl suture for skin. Sterile dressings were applied followed by a layer of sterile cast padding from the toes up to the superior thigh followed by a layer of compressive Kishore wrap from the toes up to the superior thigh. The knee joint was then fitted and placed in a postop knee brace locked at 0 degrees extension. It was provided by my office and of medical necessity to provide a stable environment for the meniscus repair to heal and provide the patient with ability to weightbear as tolerated without endangering her repair. Once the brace was fitted and placed on position and locked at 0 degree extension, the patient then extubated and transferred to the PACU in stable condition and tolerated the procedure well. JUSTIFICATION AND RATIONALE FOR BILLING AND CODIN. All inside medial meniscus repair was carried out successfully and therefore it was coded and billed. 2. Partial lateral meniscectomy was carried out successfully and therefore it was coded and billed. 3. Extensive synovectomy of all three compartments was carried out that was beyond what was considered usual and customary for better visualization during arthroscopic surgery and required a significant amount of surgical time to treat the patient's pathology including resection, debridement of the symptomatic medial plica band, resection debridement of the hypertrophic fat pad causing anterior impingement, resection of the hypertrophic and inflamed synovium throughout all three compartments. Therefore an extensive synovectomy was coded and billed. 4. Chondroplasty and microfracture of the medial femoral condyle was carried out successfully and therefore was coded and billed. 5. Intraarticular PRP injection was done at the end of the procedure and therefore was coded and billed. 6. A postop hinged knee brace was placed at a medical necessity to provide a maximal successful environment for the surgery to succeed and was provided by my office and therefore a postop hinged knee brace was coded and billed as part of this surgery. DISPOSITION: The patient will be discharged home once she is recovered from anesthesia. She was given a prescription for Percocet for pain control. She was given a prescription for Lovenox for DVT prophylaxis, start postoperative day #1, 40 mg subcutaneous injection for two weeks postoperatively. She was instructed to keep the brace and dressings clean, dry, and intact. She can be weightbearing as tolerated to the right lower extremity with the brace locked at full extension. She will contact me with any questions or concerns. She has an appointment for followup within one week at [facility] under my care postoperatively. Laureano Partida MD
== END 2018-03-14 15:19 | disposition home or self-care (01) ==
LOC: C.SDS 07:39
PROVIDERS: ATTEND Student in an Organized Health Care Education/Training Program
DX: S83.231D Complex tear of medial meniscus, current injury, right knee, subsequent encounter (principal); S83.271D Complex tear of lateral meniscus, current injury, right knee, subsequent encounter; M67.861 Other specified disorders of synovium, right knee; M94.261 Chondromalacia, right knee; M67.52 Plica syndrome, left knee; E11.9 Type 2 diabetes mellitus without complications
CPT/HCPCS: 29875; 29880; 29883; 82948; 97116; 97161; G8978; G8979; G8980; J0690; J1170; J2250; J2370; J2405; J2704; J2710; J3010

== ENCOUNTER 2018-09-24 08:39 | Outpatient (CLI) | payer MEDICARE | END 2018-09-24 08:40 | disposition home or self-care (01) | LOC: C.VASC 08:39 ==

== ENCOUNTER 2018-11-06 09:37 | Outpatient (CLI) | payer MEDICARE | END 2018-11-06 09:38 | disposition home or self-care (01) | LOC: C.DEXAIC 09:37 | DX: M81.0 Age-related osteoporosis without current pathological fracture (principal) ==